=== PATIENT | male | born 1970 | race African-American/Black ===

== ENCOUNTER 2018-03-30 07:40 | Emergency (ER) | payer MEDICAID ==
[~2018-03-30] VITALS: Ht 175.3 cm; Wt 102.0 kg
[2018-03-30] MEDS ORDERED: IBUPROFEN 600MG TABLET PO STA (08:22)
[2018-03-30 09:35] LABS: BASOPHILS % 0.4 % (0.0-2.0); HEMOGLOBIN. 14.4 g/dL (14.0-18.0); LYMPHOCYTES % 24.9 % (20.0-50.0); MEAN CORPUSCULAR HEMOGLOBIN 27.9 pg (28.0-32.0); MEAN CORPUSCULAR VOLUME 85.5 fL (80.0-94.0); MEAN PLATELET VOLUME 6.6 fl (7.4-10.4); MONOCYTES % 6.8 % (2.0-8.0); NEUTROPHILS % 66.9 % (40.0-76.0); PLATELET 294 x1000/uL (130-400); RED BLOOD CELL COUNT 5.15 mill/uL (4.7-6.1); RED CELL DISTRIBUTION WIDTH 15.5 % (11.6-14.6)
[2018-03-30 09:39] LABS: CHLORIDE 104 mEq/L (98-107)
[2018-03-30 09:42] LABS: D-DIMER 0.22 mg/L FEU (<0.50); INR 0.9; PROTHROMBIN TIME 9.6 sec (9.4-11.6)
[2018-03-30] MEDS ORDERED: NITROGLYCERIN OINT 1GM/INCH UDPKT TD ONE (10:15)
[2018-03-30] MEDS ORDERED: ASPIRIN 325MG TABLET PO ONE (10:15)
[2018-03-30 11:03] LABS: CREATINE KINASE 383 IU/L (39-308)
[2018-03-30] MEDS ORDERED: CLONIDINE 0.1MG TABLET PO PRN (11:45)
[2018-03-30] MEDS ORDERED: ACETAMINOPHEN 325MG TABLET PO PRN (11:45)
[2018-03-30] MEDS ORDERED: ZOLPIDEM TARTRATE 5MG TABLET PO PRN (11:45)
[2018-03-30] MEDS ORDERED: NA PHOS,M-B/NA PHOS,DI-BA ENEMA 118ML PR PRN (11:45)
[2018-03-30] MEDS ORDERED: KETOROLAC 15MG/ML VIAL IV PRN (11:45)
[2018-03-30] MEDS ORDERED: NITROGLYCERIN 0.4MG TABLET SL SL PRN (11:45)
[2018-03-30] MEDS ORDERED: IPRATROPIUM/ALBUTEROL 0.5-3(2.5)MG/3ML NEB INH PRN (11:45)
[2018-03-30] MEDS ORDERED: MAGNESIUM/ALUMINUM HYDROXIDE/SIMETHICONE 30ML UDC PO PRN (11:45)
[2018-03-30] MEDS ORDERED: DIPHENHYDRAMINE 50MG/ML VIAL IV PRN (11:45)
[2018-03-30] MEDS ORDERED: DOCUSATE SODIUM 100MG CAPSULE PO PRN (11:45)
[2018-03-30] MEDS ORDERED: GUAIFENESIN 200MG/10ML SUGAR FREE UDC PO PRN (11:45)
[2018-03-30] MEDS ORDERED: LORAZEPAM 0.5MG TABLET PO PRN (11:45)
[2018-03-30] MEDS ORDERED: ONDANSETRON HCL 4MG/2ML VIAL IV PRN (11:45)
[2018-03-30 12:45] LABS: *BARBITURATES SCREEN URINE NEGATIVE (NEGATIVE); *BENZODIAZEPINES SCREEN URINE NEGATIVE (NEGATIVE); *COCAINE SCREEN URINE PRESUMTIVE POSITIVE (NEGATIVE)
[2018-03-30 12:46] LABS: *AMPHETAMINES SCREEN URINE NEGATIVE (NEGATIVE); CANNABINOID URINE SCREEN PRESUMTIVE POSITIVE (NEGATIVE); METHADONE URINE SCREEN NEGATIVE (NEGATIVE); OPIATES URINE SCREEN NEGATIVE (NEGATIVE); PHENCYCLIDINE URINE SCREEN NEGATIVE (NEGATIVE)
[2018-03-30 13:51] VITALS: BP 128/78
[2018-03-30] MEDS ORDERED: NITROGLYCERIN OINT 1GM/INCH UDPKT TD SCH (14:00)
[2018-03-30] MEDS ORDERED: ENOXAPARIN 40MG/0.4ML SYR SUBCUT SCH (18:00)
[2018-03-30] MEDS ORDERED: FAMOTIDINE 20MG TABLET PO SCH (21:00)
[2018-03-31] MEDS ORDERED: AMLODIPINE 10MG TABLET PO SCH (09:00)
[2018-03-31] MEDS ORDERED: ASPIRIN 325MG EC TABLET PO SCH (09:00)
== END 2018-03-30 14:14 | disposition left against medical advice (07) ==
LOC: ER 07:40 → CANBEDREQ 17:47
DX: I24.9 Acute ischemic heart disease, unspecified (principal); I11.9 Hypertensive heart disease without heart failure; R79.9 Abnormal finding of blood chemistry, unspecified; R74.8 Abnormal levels of other serum enzymes; F14.10 Cocaine abuse, uncomplicated; J44.9 Chronic obstructive pulmonary disease, unspecified; F12.90 Cannabis use, unspecified, uncomplicated; F17.210 Nicotine dependence, cigarettes, uncomplicated; Z90.89 Acquired absence of other organs
CPT/HCPCS: 36415; 71045; 80053; 80061; 80305; 82550; 83036; 83880; 84484; 85025; 85379; 85610; 93005; 93970; 99285; Z7610